=== PATIENT | female | born 1970 | race Caucasian/White ===

== ENCOUNTER → 2024-01-28 09:35 | Outpatient (BNVA) | payer OTHER, SELFPAY | PROVIDERS: PCP Clinical Nurse Specialist Adult Health; Visit Provider Clinical Nurse Specialist Adult Health | DX: I10 Essential (primary) hypertension (principal) | CPT/HCPCS: 80053; 80061; 82607; 85025 ==

== ENCOUNTER 2024-04-28 08:03 | Outpatient (CLI) | payer OTHER, SELFPAY ==
--- NOTE | 2024-04-28 08:30 | MM_ITS ---
WS: [id number] VIEWS: MLO and CC views both breasts. 3D digital tomosynthesis is also included in this exam. Baseline study Findings: The breasts are extremely dense, which lowers the sensitivity of mammography. No mass, tumor calcification or architectural distortion. MM/MM scr BI tomosynthesis [id number] Impression: BI-RADS: 2 - Benign FOLLOW-UP: 1 Year Follow-up This mammogram was also analyzed by the Computer Aided Detection System R2 Imag e Hairspring Inspector.
== END 2024-04-28 08:04 | disposition home or self-care (01) ==
LOC: RAD 08:04
PROVIDERS: PCP Clinical Nurse Specialist Adult Health; Visit Provider Clinical Nurse Specialist Adult Health
DX: Z12.31 Encounter for screening mammogram for malignant neoplasm of breast (principal); R92.333 Mammographic heterogeneous density, bilateral breasts
CPT/HCPCS: 77063; 77067

== ENCOUNTER → 2024-08-17 10:24 | Outpatient (BNVA) | payer OTHER, SELFPAY | PROVIDERS: PCP Clinical Nurse Specialist Adult Health; Visit Provider Family Medicine | DX: R10.9 Unspecified abdominal pain (principal) | CPT/HCPCS: 80053; 83690; 85025 ==

== ENCOUNTER 2024-08-24 09:52 | Emergency (ER) | payer OTHER, SELFPAY ==
--- NOTE | 2024-08-24 10:10 | CT_ITS ---
WS: [id number] CT ABDOMEN AND PELVIS WITH CONTRAST HISTORY: abdominal pain, RIGHT lower quadrant pain for 9 days. TECHNIQUE: Imaging performed of the abdomen and pelvis with IV contrast. Single phase imaging of the abdomen. Coronal and sagittal reformats are submitted. All CT scans at [facility] use at least one of these dose optimization techniques: automated exposure control; mA and/or kV adjustment per patient size (includes targeted exams where dose is matched to clinical indication); or iterative reconstruction. IV CONTRAST: Omnipaque 350; 100 mL IV. Oral contrast: No DLP: 372.49 mGy.cm COMPARISON: Gallbladder ultrasound 08/24/2024 Lower thorax: Lung bases are clear. Heart is normal size. No hiatal hernia. Liver/biliary system: Focal fatty sparing along the falciform ligament. There are a few scattered low-attenuation lesions within the liver which are too small to characterize. 1 of these may be the hemangioma that was described by ultrasound. Gallbladder: Normal. No gallstones or wall thickening. No pericholecystic fluid. Pancreas: Normal size pancreas and pancreatic duct. No adjacent inflammation. Spleen: Normal size spleen. No mass or infarct. Adrenal glands: Normal. Right kidney: Normal. Left kidney: Normal. Aorta: Mild atherosclerosis with no aneurysm. Lymphadenopathy: None. Free fluid: None. GI tract: Normal stomach. No small bowel obstruction. Normal appendix. The appendix is very low in the pelvis. Mild diffuse constipation. No obstructing colonic lesion. Abdominal wall: Unremarkable abdominal wall. No hernia. Pelvis: No free fluid or adenopathy within the pelvis. Bones: Unremarkable. CT/CT abdomen pelvis w con* [id number] IMPRESSION: 1. No acute abdominal or pelvic abnormalities. 2. Normal appendix. 3. Mild diffuse constipation. 4. No free fluid or adenopathy. 5. No renal obstruction.
[2024-08-24 10:15] VITALS: BP 112/78; PULSE 85; TEMP 37; O2SAT 97; BMI 23.8
[2024-08-24 11:05] LABS: Basophils # 0.1 10^3/uL (0.0-0.1); Basophils % 0.7 %; Eosinophils # 0.1 10^3/uL (0.0-0.8); Eosinophils % 0.8 %; Hematocrit 38.3 % (36-47); Lymphocytes # 1.4 10^3/uL (0.8-4.8); Mean Corpuscular HGB Conc 33.4 g/dL (30-55); Mean Corpuscular Hemoglobin 31.8 pg (27-33); Mean Corpuscular Volume 95.3 fl (85-98); Mean Platelet Volume 9.2 fL (7.4-10.4); Monocytes # 0.4 10^3/uL (0.2-0.9); Neutrophils # 6.85 10^3/uL (1.8-7.7); Neutrophils % 77.2 %; Nucleated Red Blood Cells % 0 %; Platelet Count 371 10^3/cmm (157-399); Red Blood Count 4.02 10^6/uL (3.85-5.65); Red Cell Distribution Width 12.2 % (12.1-15.1); White Blood Count 8.87 10^3/uL (3.29-11.43)
[2024-08-24 11:24] LABS: Alanine Aminotransferase 22 U/L (0-33); Albumin Level 4.7 g/dL (3.5-5.2); Alkaline Phosphatase 59 U/L (35-105); Aspartate Amino Transferase 16 U/L (0-32); Blood Urea Nitrogen 9 mg/dL (6-20); Calcium 9.7 mg/dL (8.5-10.5); Carbon Dioxide 27 mmol/L (22-29); Chloride 102 mmol/L (98-107); Creatinine Clr Calc Pharmacy 120.7089; Globulin 2.6 g/dL (1.3-4.6); Glomerular Filtration Rate 128.1 mL/min (90-130); Glucose 96 mg/dL (65-115); Lipase 18 U/L (13-60); Osmolality Calculated 287 mOsm/kg (285-295); Sodium 139 mmol/L (136-145); Total Bilirubin 0.5 mg/dL (0.15-1.2); Total Protein 7.3 g/dL (6.6-8.7)
[2024-08-24 11:34] LABS: Bilirubin Urine Negative (Negative); Blood Urine 2+ (Negative); Glucose Urine UA Negative (Normal); Ketones Urine Trace (Negative); Leukocyte Esterase Urine Negative (Negative); Nitrate Urine Negative (Negative); Protein Urine Trace (Negative); Specific Gravity, Urine 1.023 (1.005-1.030); Urine Appearance Clear (CLEAR); Urine Color Dark Yellow (Yellow); pH Urine 6.5 (5-7)
[2024-08-24 11:43] LABS: Add Urine Microscopic? YES; Squamous Epithelial Cell Urine 0-4 /hpf (0-5); UA Manual Slide Review YES; UA Slide Review UA Slide Review Perf; WBC Urine 0-4 /hpf (0-5)
[2024-08-24 11:44] LABS: Add Urine Culture? Yes; Bacteria Urine TRACE /hpf; Hyaline Casts Urine 0-4 /lpf; Mucus Urine 3+ /hpf
--- NOTE | 2024-08-24 12:06 | US_ITS ---
WS: [id number] RIGHT UPPER QUADRANT ULTRASOUND HISTORY: ruq pain COMPARISON: None available. Liver: 15.2 cm in length. Normal size liver. Hyperechoic nodule measures 6 x 5 x 6 mm in the LEFT lobe may be a small hemangioma. Otherwise liver is normal. Portal Vein: Normal hepatopetal flow with monophasic waveform. Gallbladder: Normally distended gallbladder with no stones or wall thickening. CBD: 0.3 cm Pancreas: Normal size and echogenicity. Right kidney: 10.1 cm in length. Normal size and echogenicity. No hydronephrosis or mass. Aorta and IVC: Unremarkable abdominal aorta and IVC. No ascites. US/US gall bladder [id number] IMPRESSION: 1. Normal gallbladder. 2. Suspect LEFT hepatic lobe hemangioma. 3. No intrahepatic biliary dilatation.
--- NOTE | 2024-08-24 12:07 | ED_ITS ---
HPI - Abdominal Pain 2 General: Chief Complaint: Abdominal Pain Stated Complaint: rt abd pain Time Seen by Provider: 08/24/24 12:04 Source: patient Mode of arrival: ambulatory Limitations: no limitations History of Present Illness: 53-year-old female states been having ri ght upper quadrant abdominal pain for little over a week. States she saw her PCP who thought it may be gastric at her increase her Nexium states she is continue to have pain she states seems to be worse with movement denies any hoarseness with eating she denies any vomiting denies any fevers. Associated Symptoms: Denies chills, diarrhea, dysuria, fever(s), nausea and vomiting Related Data Home Medications ?Medication ?Instructions ?Recorded ?Confirmed omega 4-pha-eiv-fish oil 300 1 cap PO DAILY 10/15/23 0 08/24/24 mg-1,000 mg capsule (Fish Oil) esomeprazole magnesium 20 mg 20 mg PO DAILY 08/24/24 0 08/24/24 capsule,delayed release (Nexium) Previous Rx's ?Medication ?Instructions ?Recorded CPAP with all supplies needed #1 ea 10/15/23 including tubing, distilled water dispenser and mask/headstrap calcium 600 mg (as 1 cap PO DAILY #30 caps 09/22 10/14 carbonate)-vitamin D3 12.5 mcg (500 unit) capsule (Calcium with Vit D3) sertraline 50 mg tablet 50 mg PO DAILY #90 tabs 09/22 10/14 clonazepam 0.5 mg tablet 0.5 mg PO DAILY PRN anxiety #30 02/09/24 tabs ondansetron 4 mg disintegrating 4 mg PO Q6H PRN nausea and 08/17/24 tablet vomiting #20 tabs hydrocodone 5 mg-acetaminophen 325 1 tab PO Q8H PRN pa in 2 weeks #14 08/23/24 mg tablet tabs polyethylene glycol 3350 17 gram 17 g PO DAILY PRN con stipation #14 08/24/24 oral powder packet (Miralax) ea Allergies Allergy/AdvReac Type Severity Reaction Status Date / Time Penicillins AdvReac Severe ADR-Vomitin Verified 08/24/24 10:19 g Review of Systems 2 Const: Denies: fever(s), chills, body aches or change in appetite ENMT: Denies: throat pain or dental pain Card: Denies: chest pain Resp: Denies: dyspnea GI: Reports: abdominal pain; Denies: nausea, vomiting or diarrhea : Denies: dysuria Musc: Denies: neck pain or back pain Skin/Breast: Denies: rash Neuro: Denies: headache(s) PFSH ED 2 PFSH: Medical History Vitamin B12 deficiency Essential hypertension no longer requiring medication Generalized anxiety disorder History of panic attacks Insomnia History of major depression Generalized osteoarthritis Hyperlipidemia SCARLETT (obstructive sleep apnea) uses CPAP nightly Factor V Leiden carrier on baby aspirin Surgical History History of wisdom tooth extraction History of bunionectomy 2016 History of hysterectomy 2005, precancerous reasons, she still has her ovaries. Last Pap 2015. 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 Physical Exam 2 Const: COMMON NORMALS: no acute distress, patient oriented x3 and healthy appearing HENMT: COMMON NORMALS: normocephalic and atraumatic HEAD & SCALP: n ormocephalic and atraumatic Eye: COMMON NORMALS: conjunctivae normal CONJUNCTIVA: Yes conjunctivae normal Neck/C-Spine: COMMON NORMALS: full ROM and supple Chest: COMMONS NORMALS: normal inspection of the chest Resp: COMMON NORMALS: normal respiratory effort, No retractions, No use of accessory muscles and clear to auscultation bilaterally AUSCULTATION: clear to auscultation bilaterally Cardio: COMMON NORMALS: regular rate, regular rhythm and No murmurs present (Cardio) RATE: regular rate RHYTHM: regular rhythm GI: COMMON NORMALS: Normal to inspection, nondistended, normoactive bowel sounds present, Soft to palpation and no masses PALPATION: Yes Soft to palpation and Yes Tenderness to palpation present (GI) Details: RUQ Extremity: COMMON NORMALS: normal to inspection and full ROM Neuro: COMMON NORMALS: patient oriented x3, moves all extremities and no focal motor deficits Psych: COMMON NORMALS: mental status grossly normal, Normal thought process present and cooperative THOUGHT PROCESS: Normal thought process present Skin: COMMON NORMALS: no rashes or lesions noted and no wounds GENERAL SKIN EXAM: no rashes or lesions noted Course 2 Vital Signs: Vital signs: Vital Signs Temperature 98.6 F 08/24/24 10:15 Pulse Rate 83 08/24/24 13:02 Respiratory Rate 16 08/24/24 13:02 Blood Pressure 117/59 08/24/24 13:02 Pulse Oximetry 100 08/24/24 13:02 Oxygen Delivery Me thod Room Air 08/24/24 13:02 MDM - Abdominal Pain Medical Decision Making Patient presents here with abdominal pain CT shows constipation or blood works normal no signs acute surgical abdomen she stable for discharge we will place her on MiraLAX she is return if worsening she understands agrees to plan. Medical Records I reviewed the patient's medical records. Lab Data I reviewed the patient's lab results. 08/24/24 10:35 08/24/24 10:35 Labs/Radiology: Radiology Impressions Abdomen/Pelvis CT 08/24/24 10:10 IMPRESSION: 1. No acute abdominal or pelvic abnormalities. 2. Normal appendix. 3. Mild diffuse constipation. 4. No free fluid or adenopathy. 5. No renal obstruction. Gallbladder Ultrasound 08/24/24 12:06 IMPRESSION: 1. Normal gallbladder. 2. Suspect LEFT hepatic lobe hemangioma. 3. No intrahepatic biliary dilatation. Laboratory Results WBC 8.87 10^3/uL (3.29-11.43) 08/24/24 10:35 RBC 4.02 10^6/uL (3.85-5.65) 08/24/24 10:35 Hgb 12.80 g/dL (11.27-16.99) 08/24/24 10:35 Hct 38.3 % (36-47) 08/24/24 10:35 MCV 95.3 fl (85-98) 08/24/24 10:35 MCH 31.8 pg (27-33) 08/24/24 10:35 MCHC 33.4 g/dL (30-55) 08/24/24 10:35 RDW 12.2 % (12.1-15.1) 08/24/24 10:35 Plt Count 371 10^3/cmm (157-399) 08/24/24 10:35 MPV 9.2 fL (7.4-10.4) 08/24/24 10:35 Neut % (Auto) 77.2 % 08/24/24 10:35 Lymph % (Auto) 16.0 % 08/24/24 10:35 Union % (Auto) 5.0 % 08/24/24 10:35 Eos % (Auto) 0.8 % 08/24/24 10:35 Baso % (Auto) 0.7 % 08/24/24 10:35 Neut # (Auto) 6.85 10^3/uL (1.8-7.7) 08/24/24 10:35 Lymph # (Auto) 1.4 10^3/uL (0.8-4.8) 08/24/24 10:35 Union # (Auto) 0.4 10^3/uL (0.2-0.9) 08/24/24 10:35 Eos # (Auto) 0.1 10^3/uL (0.0-0.8) 08/24/24 10:35 Baso # (Auto) 0.1 10^3/uL (0.0-0.1) 08/24/24 10:35 Nucleated RBC % (auto) 0 % 08/24/24 10:35 Nucleated RBCs # 0.0 /100WBC 08/24/24 10:35 Sodium 139 mmol/L (136-145) 08/24/24 10:35 Potassium 4.0 mmol/L (3.5-5.1) 08/24/24 10:35 Chloride 102 mmol/L (98-107) 08/24/24 10:35 Carbon Dioxide 27 mmol/L (22-29) 08/24/24 10:35 Anion Gap 14.0 (5-19) 08/24/24 10:35 BUN 9 mg/dL (6-20) 08/24/24 10:35 Creatinine 0.5 mg/dL (0.5-0.9) 08/24/24 10:35 GFR Calculation 128.1 mL/min (90-130) 08/24/24 10:35 Glucose 96 mg/dL (65-115) 08/24/24 10:35 Calculated Osmolality 287 mOsm/kg (285-295) 08/24/24 10:35 Calcium 9.7 mg/dL (8.5-10.5) 08/24/24 10:35 Total Bilirubin 0.5 mg/dL (0.15-1.2) 08/24/24 10:35 AST 16 U/L (0-32) 08/24/24 10:35 ALT 22 U/L (0-33) 08/24/24 10:35 Alkaline Phosphatase 59 U/L (35-105) 08/24/24 10:35 Total Protein 7.3 g/dL (6.6-8.7) 08/24/24 10:35 Albumin 4.7 g/dL (3.5-5.2) 08/24/24 10:35 Globulin 2.6 g/dL (1.3-4.6) 08/24/24 10:35 Lipase 18 U/L (13-60) 08/24/24 10:35 Urine Color Dark yellow (Yellow) A 08/24/24 11:05 Urine Appearance Clear (CLEAR) 08/24/24 11:05 Urine pH 6.5 (5-7) 08/24/24 11:05 Ur Specific Levan 1.023 (1.005-1.030) 08/24/24 11:05 Urine Protein Trace (Negative) A 08/24/24 11:05 Urine Glucose (UA) Negative (Normal) 08/24/24 11:05 Urine Ketones Trace (Negative) 08/24/24 11:05 Urine Blood 2+ (Negative) A 08/24/24 11:05 Urine Nitrate Negative (Negative) 08/24/24 11:05 Urine Bilirubin Negative (Negative) 08/24/24 11:05 Urine Urobilinogen 1.0 mg/dL (Negative) 08/24/24 11:05 Ur Leukocyte Esterase Negative (Negative) 08/24/24 11:05 Urine RBC 10-15 /hpf (0-2) H 08/24/24 11:05 Urine WBC 0-4 /hpf (0-5) H 08/24/24 11:05 Ur Squamous Epith Cells 0-4 /hpf (0-5) H 08/24/24 11:05 Amorphous Sediment Not Reportable 08/24/24 11:05 Urine Bacteria Trace /hpf (NONE) 08/24/24 11:05 Hyaline Casts 0-4 /lpf H 08/24/24 11:05 Urine Mucus 3+ /hpf 08/24/24 11:05 All radiology interpretation(s) finalized by discharge Discharge Plan Discharge Patient Disposition: Home Clinical Impression: Abdominal pain, Constipation Condition: Stable Prescriptions: New polyethylene glycol 3350 [Miralax] 17 gram powder in packet 17 g PO DAILY PRN (Reason: constipation) Qty: 14 0RF No Action omega 0-gtv-slt-fish oil [Fish Oil] 300-1,000 mg capsule 1 cap PO DAILY calcium carbonate-vitamin D3 [Calcium 600 with Vitamin D3] 600 mg-12.5 mcg (500 unit) capsule 1 cap PO DAILY Qty: 30 0RF (DME) CPAP with all supplies needed including tubing, distilled water dispenser and mask/headstrap See Rx Instructions .Route .MEDSUPPLY Qty: 1 0RF Rx Instructions: As directed sertraline 50 mg tablet 50 mg PO DAILY Qty: 90 3RF ondansetron 4 mg tablet,disintegrating 4 mg PO Q6H PRN (Reason: nausea and vomiting) Qty: 20 11RF hydrocodone-acetaminophen 5-325 mg tablet 1 tab PO Q8H PRN (Reason: pain) 14 Days Qty: 14 0RF clonazepam 0.5 mg tablet 0.5 mg PO DAILY PRN (Reason: anxiety) Qty: 30 0RF esomeprazole magnesium [Nexium] 20 mg Capsule,Delayed Release(Dr/Ec) 20 mg PO DAILY Discharge Orders: Discharge ED (Routine); Ordered 08/24/24 Ordered By: William Nation Referrals: Isidro Mccormick MD [Physician] - 4-7 days Ruiz Vang NP [Primary Care Provider] - Discharge Diet: Advance as tolerated Discharge Activity: Resume usual activity Patient Instructions: Abdominal Pain (ED), Opioid Safety, Pain Management Print Language: Austrian Coding Level of Care Code 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
[2024-08-24 12:12] VITALS: BP 130/83; PULSE 68; RESP 20; O2SAT 100
[2024-08-24] MEDS: iohexol 350 mg/mL 500 mL Btl (per mL) IV (13:00)
[2024-08-24 13:02] VITALS: BP 117/59; PULSE 83; RESP 16; O2SAT 100
[2024-08-24] MEDS: morphine 4 mg/mL SDV 1 mL IVP (13:19)
[2024-08-24] MEDS: ondansetron 2 mg/ML SDV 2 mL 4 MG IVP (13:19)
[2024-08-24 13:45] VITALS: BP 148/87; PULSE 68; O2SAT 95
== END 2024-08-24 13:46 | disposition home or self-care (01) ==
PROVIDERS: Physician Assistant; Emergency Provider Emergency Medicine; PCP Clinical Nurse Specialist Adult Health
DX: R10.11 Right upper quadrant pain (principal); K59.00 Constipation, unspecified; E78.5 Hyperlipidemia, unspecified; I10 Essential (primary) hypertension
CPT/HCPCS: 36415; 74177; 76705; 80053; 81001; 83690; 85025; 87086; 96374; 96375; 99285; J2270; J2405

== ENCOUNTER 2024-09-30 09:08 | Day surgery (SDC) | payer OTHER, SELFPAY ==
--- NOTE | 2024-09-30 09:27 | W.PM.OPSUD ---
Surgery/Procedure H&P Update DATE OF PROCEDURE: September 30, 2024 DATE H&P PERFORMED: 09/14/24 H&P UPDATE INFORMATION: I have reviewed H&P completed within last 30 days, I have examined patient prior to procedure, No changes to prior documentation, Changes to prior documentation as noted here and Risks and benefits of the procedure reviewed PLANNED PROCEDURE: Operation Date: 09/30/24 11:00 Proposed Procedures p EGD 71156 [id number] G0105 R10.9 R10.13(Not Applicable) - Isidro Mccormick MD s Colonoscopy(Not Applicable) - Isidro Mccormick MD
[2024-09-30 09:30] VITALS: BP 129/81; PULSE 90; RESP 18; TEMP 36.5; O2SAT 98; BMI 23.8
--- NOTE | 2024-09-30 09:36 | PC.NURSE ---
patient belongings green crocks, hernandes socks, red shirt, hernandes tank top, blue sweat pants, undergarments, iphone
[2024-09-30] MEDS: sodium chloride 0.9% 1,000 ML 15 ML IV (09:40)
--- NOTE | 2024-09-30 09:42 | ANES.PREANE2 ---
Pre-Anesthetic Assessment Height/Weight: Height 1.65 m Weight 64.864 kg Temp Pulse Resp BP Pulse Ox O2 Del Method 97.7 F 90 18 129/81 98 Room Air 09/30/24 09:30 09/30/24 09:30 09/30/24 09:30 09/30/24 09:30 09/30/24 09:30 09/30/24 09:30 Preop Diagnosis: Pain in URQ Operation Date: 09/30/24 11:00 Proposed Procedures p EGD [id number] G0105 R10.9 R10.13(Not Applicable) - Isidro Mccormick MD s Colonoscopy(Not Applicable) - Isidro Mccormick MD Familial anesthetic complications: none Was Beta Tima taken within 24 hours: N/A Was Clonidine taken within 24 hours: N/A Last intake: Intake Last Liquid Date 09/29/24 Last Liquid Time 23:30 Last Solid Date 09/28/24 Last Solid Time 20:00 Social No alcohol and No tobacco Smokes Marijuana daily Exam alert, oriented x 3, clear to auscultation bilaterally and regular rate & rhythm Airway Submandibular: within normal limits Cervical ROM: within normal limits Mallampati: Class II Dentition: full History/ROS No significant history except as noted and No significant complaints Pulmonary Sleep Apnea CPAP at night CV/HEM None reported None reported Hepatic None reported GI Gastroesophageal Reflux Disease Metabolic None reported Musc/skel None reported Neuropsych Anxiety and Dementia Anesthetic Plan ASA status: 2 Anesthesia: MAC Risk of > 500 ml blood loss (7ml/kg in children): No Medications/Allergies Home Medications ?Medication ?Instructions ?Recorded ?Confirmed ?Last Taken ?Type CPAP with all supplies needed #1 ea 10/15/23 09/14/24 Unknown Rx including tubing, distilled water dispenser and mask/headstrap calcium 600 mg (as 1 cap PO DAILY #30 caps 10/15/23 09/30/24 1 Month Ago Rx carbonate)-vitamin D3 12.5 mcg ~08/30/24 (500 unit) capsule (Calcium with Vit D3) omega 6-htg-syq-fish oil 300 1 cap PO DAILY 10/15/23 09/30/24 1 Month Ago History mg-1,000 mg capsule (Fish Oil) ~08/30/24 sertraline 50 mg tablet 50 mg PO DAILY #90 tabs 10/15/23 09/28/24 09/30/24 06:30 Rx clonazepam 0.5 mg tablet 0.5 mg PO DAILY PRN anxiety #30 02/09/24 09/30/24 1 Week Ago Rx tabs ~09/23/24 ondansetron 4 mg disintegrating 4 mg PO Q6H PRN nausea and 08/17/24 09/30/24 1 Week Ago Rx tablet vomiting #20 tabs ~09/23/24 polyethylene glycol 3350 17 gram 17 g PO DAILY PRN constipation #14 08/24/24 09/30/24 09/28/24 Rx oral powder packet (Miralax) ea cyanocobalamin (vitamin B-12) 1,000 mcg PO DAILY 09/28/24 09/30/24 09/28/24 History 1,000 mcg tablet (Vitamin B-12) omeprazole 40 mg capsule,delayed 40 mg PO DAILY 09/28/24 09/28/24 09/29/24 History release sucralfate 1 gram tablet 1 g PO QID 09/28/24 09/28/24 09/28/24 History zolpidem 5 mg tablet 5 mg PO BEDTIME PRN Insomnia 09/28/24 09/30/24 1 Week Ago History ~09/23/24 Allergies Allergy/AdvReac Type Severity Reaction Status Date / Time Penicillins AdvReac Severe ADR-Vomitin Verified 09/14/24 09:07 g Current Medications Generic Name Dose Route Start Last Admin Trade Name Freq PRN Reason Stop Dose Admin Sodium Chloride 1,000 mls @ 15 mls/hr 09/30/24 09:14 09/30/24 09:40 Sodium Chloride 0.9% IV 10/01/24 09:13 15 mls/hr .Q24H PRN Administration COLONOSCOPY FLUIDS PFSH Anesthesia Medical History Vitamin B12 deficiency Essential hypertension no longer requiring medication Generalized anxiety disorder History of panic attacks Insomnia History of major depression Generalized osteoarthritis Hyperlipidemia SCARLETT (obstructive sleep apnea) uses CPAP nightly Factor V Leiden carrier on baby aspirin Surgical History History of wisdom tooth extraction History of bunionectomy 2016 History of hysterectomy 2006, precancerous reasons, she still has her ovaries. Last Pap 2015. 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
[2024-09-30 11:10] VITALS: BP 127/69; PULSE 85; RESP 16; TEMP 36.1; O2SAT 97
--- NOTE | 2024-09-30 11:30 | ANE.PACU2 ---
Inpatient post-anesthesia follow up: Airway intact: Yes Vital signs: Temperature 97.0 F Pulse Rate 85 Respiratory Rate 16 Blood Pressure 127/69 Pulse Oximetry 97 Oxygen Delivery Me thod Room Air Oxygen Flow Rate Fraction of Inspir ed Oxygen Hydration adequate: Yes Nausea and vomiting: No Pain level: 1 Mental status: Baseline
== END 2024-09-30 11:32 | disposition home or self-care (01) ==
PROVIDERS: PCP Clinical Nurse Specialist Adult Health; Visit Provider Surgery
PROC: 0DJ08ZZ Inspection of Upper Intestinal Tract, Via Natural or Artificial Opening Endoscopic (ICD-10-PCS; principal; 2024-09-30 11:00)
PROC: 0DJD8ZZ Inspection of Lower Intestinal Tract, Via Natural or Artificial Opening Endoscopic (ICD-10-PCS; CPT 45378; 2024-09-30 11:00)
DX: Z12.11 Encounter for screening for malignant neoplasm of colon (principal); D12.5 Benign neoplasm of sigmoid colon; D12.3 Benign neoplasm of transverse colon; K29.50 Unspecified chronic gastritis without bleeding; D12.0 Benign neoplasm of cecum; K31.7 Polyp of stomach and duodenum; K21.9 Gastro-esophageal reflux disease without esophagitis; G47.33 Obstructive sleep apnea (adult) (pediatric); I10 Essential (primary) hypertension; E78.5 Hyperlipidemia, unspecified; D68.51 Activated protein C resistance; Z79.899 Other long term (current) drug therapy; Z88.0 Allergy status to penicillin
CPT/HCPCS: 43239; 43251; 45380; 45385; 88305; 88342; J2704; J7030

== ENCOUNTER 2024-10-12 07:40 | Outpatient (CLI) | payer OTHER, SELFPAY ==
--- NOTE | 2024-10-12 08:00 | NM_ITS ---
WS: [id number] NUCLEAR MEDICINE HIDA SCAN WITH GALLBLADDER EJECTION FRACTION HISTORY: abdominal pain COMPARISON: 08/24/2024 TECHNIQUE: The patient was intravenously injected with 7.8 mCi of TC99m Mebrofenin. Immediate imaging over the right upper quadrant was followed by 5 minute image and additional images for a total of 60 minutes. Normal uptake of radiotracer throughout the liver. Activity identified in the gallbladder at 20 minutes and well distended by 60 minutes. Activity in the proximal small bowel was seen by 50 minutes. Good washout of the radiotracer from the liver by 60 minutes. The patient then drank 8 ounces of Ensure Plus. Ejection fraction at 60 minutes was 79%. Normal GB ejection fraction is 35-75%. Post fatty meal symptoms: None. NM/NM hepatobiliary w phar* [id number] IMPRESSION: 1. Normal HIDA scan. 2. Normal gallbladder ejection fraction.
== END 2024-10-12 07:41 | disposition home or self-care (01) ==
LOC: RAD 07:42
PROVIDERS: PCP Clinical Nurse Specialist Adult Health; Visit Provider Surgery
DX: R10.9 Unspecified abdominal pain (principal)
CPT/HCPCS: 78227; A9537

== ENCOUNTER 2024-10-25 07:31 | Day surgery (SDC) | payer OTHER, SELFPAY ==
[2024-10-25] VITALS (16 sets, daily range): BP systolic 108–142; BP diastolic 59–87; PULSE 64–78; RESP 12–20; TEMP 36.2–36.7; O2SAT 96–100; BMI 23.3
--- NOTE | 2024-10-25 05:48 | W.PM.OPSUD ---
Surgery/Procedure H&P Update DATE OF PROCEDURE: October 25, 2024 DATE H&P PERFORMED: 10/13/24 PLANNED PROCEDURE: Operation Date: 10/25/24 09:15 Proposed Procedures p POSSIBLE OPEN Laparoscopic Cholecystectomy 70632 K850.50(Not Applicable) - Isidro Mccormick MD
--- NOTE | 2024-10-25 08:22 | P.HPUD_ITS ---
Surgery/Procedure H&P Update DATE OF PROCEDURE: October 25, 2024 DATE H&P PERFORMED: 10/13/24 H&P UPDATE INFORMATION: I have reviewed H&P completed within last 30 days, I have examined patient prior to procedure, No changes to prior documentation, H&P is in [facility] EMR on date indicated and Risks and benefits of the procedure reviewed PLANNED PROCEDURE: Operation Date: 10/25/24 09:15 Proposed Procedures p POSSIBLE OPEN Laparoscopic Cholecystectomy 87522 K850.50(Not Applicable) - Isidro Mccormick MD
--- NOTE | 2024-10-25 08:38 | ANES.PREANE2 ---
Pre-Anesthetic Assessment Height/Weight: Height 5 ft 5 in Weight 140 lb Temp Pulse Resp BP Pulse Ox O2 Del Method 97.6 F 66 16 108/69 98 Room Air 10/25/24 08:14 10/25/24 08:14 10/25/24 08:14 10/25/24 08:14 10/25/24 08:14 10/25/24 08:18 Preop Diagnosis: Chronic cholecystitis Operation Date: 10/25/24 09:15 Proposed Procedures p POSSIBLE OPEN Laparoscopic Cholecystectomy 41366 K850.50(Not Applicable) - Isidro Mccormick MD Was Beta Tima taken within 24 hours: N/A Was Clonidine taken within 24 hours: N/A Last intake: Intake Last Liquid Date 10/24/24 Last Liquid Time 20:30 Last Solid Date 10/24/24 Last Solid Time 20:30 Social No alcohol and No tobacco Quit smoking 2 years ago. Smokes marijuana daily Exam alert, oriented x 3, clear to auscultation bilaterally and regular rate & rhythm Airway Submandibular: within normal limits Cervical ROM: within normal limits Mallampati: Class II Dentition: full Anesthetic Plan ASA status: 3 Anesthesia: General Other: No prior issues with anesthesia NPO since yesterday evening History of SCARLETT, CPAP nightly Smokes marijuana daily GERD on omeprazole Labs reviewed from 08/24/2024 and acceptable for procedure Plan for GETA Medications/Allergies Home Medications ?Medication ?Instructions ?Recorded ?Confirmed ?Last Taken ?Type CPAP with all supplies needed #1 ea 10/15/23 10/13/24 Unknown Rx including tubing, distilled water dispenser and mask/headstrap calcium 600 mg (as 1 cap PO DAILY #30 caps 10/15/23 10/21/24 1 Month Ago Rx carbonate)-vitamin D3 12.5 mcg ~08/30/24 (500 unit) capsule (Calcium with Vit D3) omega 5-cce-cma-fish oil 300 1 cap PO DAILY 10/15/23 10/25/24 1 Month Ago History mg-1,000 mg capsule (Fish Oil) ~08/30/24 sertraline 50 mg tablet 50 mg PO DAILY #90 tabs 10/15/23 10/21/24 10/25/24 Rx clonazepam 0.5 mg tablet 0.5 mg PO DAILY PRN anxiety #30 02/09/24 10/21/24 1 Week Ago Rx tabs ~09/23/24 ondansetron 4 mg disintegrating 4 mg PO Q6H PRN nausea and 08/17/24 10/21/24 1 Week Ago Rx tablet vomiting #20 tabs ~09/23/24 polyethylene glycol 3350 17 gram 17 g PO DAILY PRN constipation #14 08/24/24 10/21/24 09/28/24 Rx oral powder packet (Miralax) ea cyanocobalamin (vitamin B-12) 1,000 mcg PO DAILY 09/28/24 10/21/24 09/28/24 History 1,000 mcg tablet (Vitamin B-12) omeprazole 40 mg capsule,delayed 40 mg PO DAILY 09/28/24 10/21/24 10/21/24 History release zolpidem 5 mg tablet 5 mg PO BEDTIME PRN Insomnia 09/28/24 10/21/24 1 Week Ago History ~09/23/24 Allergies Allergy/AdvReac Type Severity Reaction Status Date / Time Penicillins AdvReac Severe ADR-Vomitin Verified 10/13/24 14:11 g PFSH Anesthesia Medical History Vitamin B12 deficiency Essential hypertension no longer requiring medication Generalized anxiety disorder History of panic attacks Insomnia History of major depression Generalized osteoarthritis Hyperlipidemia SCARLETT (obstructive sleep apnea) uses CPAP nightly Factor V Leiden carrier on baby aspirin Surgical History History of wisdom tooth extraction History of bunionectomy 2016 History of hysterectomy 2006, precancerous reasons, she still has her ovaries. Last Pap 2015. 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
[2024-10-25] MEDS: sodium chloride 0.9% 1,000 ML 30 ML IV (08:45)
[2024-10-25] MEDS: clindamycin 600 MG/50 ML PREMIX 30 MG IV (08:52)
[2024-10-25] MEDS: lidocaine-epi 1% PF 1:200,000 30 mL SDV 10 ML INJECTION (10:05)
[2024-10-25] MEDS: BUPivacaine 0.25% INJ 10 mL INJECTION (10:05)
--- NOTE | 2024-10-25 10:07 | P.OP_ITS ---
Operative Report Date of procedure: October 25, 2024 Pre-op diagnosis: Biliary colic Post-op diagnosis: Same Post-op findings: Normal biliary anatomy Procedure done: Laparoscopic cholecystectomy Specimens removed/disposition: Gallbladder and contents Surgeon: Isidro Mccormick MD Protective Signal Superintendent: EJ OR Staff Complications: none apparent Brief History: This is a 54-year-old female who presents to my office for evaluation for biliary colic. After discussion of all risk and benefits as documented in my preop note we decided to proceed with a laparoscopic possible open cholecystectomy. Procedure: Patient was brought into the OR, she was placed in a supine position. General anesthesia was given. The abdomen was prepped and draped in the usual sterile fashion. A timeout was conducted. I accessed the abdomen via a 5 mm Optiview port in the left upper quadrant. Initial pneumoperitoneum was obtained and no evidence of visceral injury during entry was noted. At 12 mm trocar was placed in the infraumbilical position under direct visualization. Additional 5 mm trocars were placed in the epigastrium right upper quadrant and right flank under direct visualization. The gallbladder was grasped from the fundus and retracted cephalad, I then grasped the infundibulum and retracted in the inferolateral direction exposing the hepatocystic triangle. The peritoneum anterior to the hepatocystic triangle was opened with electrocautery, I carried this opening in the medial and lateral direction to the edges of the liver and then on the sides of the gallbladder to allow for better exposure. With careful blunt dissection as well as electrocautery I was able to encircle the cystic duct and artery, I also elevated lower third of the gallbladder from the liver bed, thus creating a critical view of safety. The cystic duct and artery were d ouble clipped proximally and single clipped distally and transected. The gallbladder was removed from the liver bed using electrocautery. The gallbladder was retrieved in an Endo Catch bag via the umbilical trocar site. The liver bed and clips were inspected the area was hemostatic, there was no evidence of bile leak the clips appeared to be in good position. The umbilical trocar was removed and umbilical trocar site was closed with a 0 Vicryl Smith- Margaux suture passer under direct visualization. The epigastrium right upper quadrant right flank trocars were removed under direct visualization, the left upper quadrant trocar was used to evacuate the pneumoperitoneum and subsequently removed. Local anesthesia was infiltrated. Hemostasis was achieved from the trocar sites. The wounds were closed in layers using #3-0 Vicryl for the subcutaneous tissue #4 Monocryl for the skin. At the end of the procedure all counts were correct, the patient tolerated well the procedure was transferred to the PACU in stable condition.
[2024-10-25] MEDS: fentaNYL 50 mcg/mL INJ 2mL IVP (10:38)
[2024-10-25] MEDS: ondansetron 2 mg/ML SDV 2 mL 4 MG IVP (10:42)
--- NOTE | 2024-10-25 12:20 | ANE.PACU2 ---
Inpatient post-anesthesia follow up: Airway intact: Yes Vital signs: Temperature 98.0 F Pulse Rate 71 Respiratory Rate 16 Blood Pressure 126/78 Pulse Oximetry 98 Oxygen Delivery Me thod Room Air Oxygen Flow Rate 10 Fraction of Inspir ed Oxygen Hydration adequate: Yes Nausea and vomiting: No Pain level: 1 Mental status: Baseline
== END 2024-10-25 12:20 | disposition home or self-care (01) ==
PROVIDERS: PCP Clinical Nurse Specialist Adult Health; Visit Provider Surgery
PROC: 0FT44ZZ Resection of Gallbladder, Percutaneous Endoscopic Approach (ICD-10-PCS; CPT 47562; principal; 2024-10-25 09:05)
DX: K81.1 Chronic cholecystitis (principal); I10 Essential (primary) hypertension; E78.5 Hyperlipidemia, unspecified; G47.33 Obstructive sleep apnea (adult) (pediatric); D68.51 Activated protein C resistance; Z87.891 Personal history of nicotine dependence; K21.9 Gastro-esophageal reflux disease without esophagitis; Z79.899 Other long term (current) drug therapy; Z79.82 Long term (current) use of aspirin
CPT/HCPCS: 47562; 88304; A4216; J1100; J1885; J2250; J2405; J2704; J3010; J3490; J7030; J9999

== ENCOUNTER 2025-05-16 08:09 | Outpatient (CLI) | payer OTHER, SELFPAY ==
--- NOTE | 2025-05-16 08:15 | MM_ITS ---
WS: [id number] BILATERAL 3D TOMOSYNTHESIS DIGITAL SCREENING MAMMOGRAPHY WITH CAD CLINICAL INFORMATION: SCREENING HISTORY: Screening mammogram. No current complaints. COMPARISON: 2023 TECHNIQUE: Bilateral CC and MLO views. FINDINGS: The breasts are composed of heterogeneous fibroglandular density tissue, which can limit the detection of small underlying mass lesions. No suspicious mass, asymmetry, calcifications, or architectural distortion. No evidence of malignancy. Punctate and lucent centered calcifications. MM/MM [facility] tomosynthesis [id number] IMPRESSION: DENSITY: The breasts are heterogeneously dense, which may obscure small masses. BI-RADS: 2 - Benign FOLLOW UP: 1 Year Follow-up Recommend return to annual screening mammography.
== END 2025-05-16 08:10 | disposition home or self-care (01) ==
PROVIDERS: PCP Family Medicine; Visit Provider Family Medicine
DX: Z12.31 Encounter for screening mammogram for malignant neoplasm of breast (principal); R92.333 Mammographic heterogeneous density, bilateral breasts; R92.323 Mammographic fibroglandular density, bilateral breasts; R92.1 Mammographic calcification found on diagnostic imaging of breast
CPT/HCPCS: 77063; 77067